=== PATIENT | male | born 1975 | race Two or more races ===

== ENCOUNTER 2022-05-28 07:45 | Emergency (ER) | payer OTHER ==
[~2022-05-28] VITALS: Ht 180.3 cm; Wt 102.1 kg
[~2022-05-28 07:45] MED LIST: ATARAX25 MG PO; DOXYCYCLINE HY100 MG PO; NORVASC5 MG PO; PEPCID AC20 MG PO; TRAMADOL HCL50 MG PO; ZYRTEC10 M3 PO
[2022-05-28] MEDS ORDERED: RAMIPRIL10 MG PO (07:59)
[2022-05-28] MEDS ORDERED: ATORVASTATIN CA20 MG PO (08:00)
[2022-05-28] MEDS ORDERED: LIPITOR40 M1 PO (08:25)
== END 2022-05-28 11:34 | disposition home or self-care (01) ==
LOC: ER 07:45
DX: R07.89 Other chest pain (principal)

== ENCOUNTER 2024-11-11 21:19 | Emergency (ER) | payer OTHER ==
[~2024-11-11] VITALS: Ht 180.3 cm; Wt 104.3 kg
[~2024-11-11 21:19] MED LIST changes: +ATORVASTATIN CA20 MG PO; +LIPITOR40 M1 PO; +RAMIPRIL10 MG PO
[2024-11-11] MEDS ORDERED: CLINDAMYCIN PHOSPHATE 150 MG/ML (600mg) IM STA (21:44)
[2024-11-11] MEDS ORDERED: CLINDAMYCIN PHOSPHATE 150 MG/ML (300mg) ONE (22:09)
== END 2024-11-11 22:20 | disposition home or self-care (01) ==
LOC: ER 21:22
DX: L02.221 Furuncle of abdominal wall (principal); Z88.0 Allergy status to penicillin
CPT/HCPCS: 96365; 99282; J3490